=== PATIENT | male | born 1985 | race Caucasian/White ===

== ENCOUNTER 2023-09-15 20:24 | Emergency (ER) | payer BC ==
[~2023-09-15] VITALS: Ht 167.6 cm; Wt 63.6 kg
[2023-09-15 20:30] VITALS: BP 122/76; PULSE 75; RESP 17; TEMP 97.9; O2SAT 99
[2023-09-15] MEDS: TETanus/Pertussis (Acell)/Diphther VAC/PF (Tdap-Adult) 0.5ml syringe IMVAC ONE (20:44)
== END 2023-09-15 20:52 | disposition home or self-care (01) ==
LOC: ER 20:25
DX: S81.811A Laceration without foreign body, right lower leg, initial encounter (principal); W22.8XXA Striking against or struck by other objects, initial encounter; Y93.89 Activity, other specified; Y92.89 Other specified places as the place of occurrence of the external cause; Y99.8 Other external cause status
CPT/HCPCS: 90471; 90715; 99283